=== PATIENT | female | born 1985 | race Hispanic/Latino ===

== ENCOUNTER 2017-07-30 23:39 | Emergency (ER) | payer OTHER | END 2017-07-31 01:13 | disposition home or self-care (01) | LOC: ERS 23:39 | DX: O99.519 Diseases of the respiratory system complicating pregnancy, unspecified trimester (principal); J11.1 Influenza due to unidentified influenza virus with other respiratory manifestations; Z3A.00 Weeks of gestation of pregnancy not specified | CPT/HCPCS: 99283 ==

== ENCOUNTER 2017-12-25 22:52 | Inpatient (IN) | payer OTHER ==
[2017-12-25 23:44] VITALS: BMI 39.0
[2017-12-26] MEDS ORDERED: Acetaminophen 500 MG TAB PO PRN (01:02)
[2017-12-26] MEDS ORDERED: Promethazine HCl 25 MG/ML VIAL IM PRN ×2 (01:02→06:40)
[2017-12-26] MEDS ORDERED: Ondansetron HCl/PF 4 MG/2 ML Vial IVP PRN ×3 (01:02→18:53)
[2017-12-26] MEDS ORDERED: Lactated Ringer's 1,000 ML IV SCH (01:15)
[2017-12-26] MEDS ORDERED: Betamet Acet/Betamet Na Ph 30 MG/5 ML VIAL IM SCH (01:15)
--- NOTE | 2017-12-26 01:19 | PDOC.LDHP ---
Labor and Delivery H&P Chief complaint: other (abdominal cramping) HPI: 32 year old at 35.3 wks with EVELINE of 01/29/2018 based on 11.5 wk u/s that presents for lower abdominal cramping and maroon colored vaginal discharge evidence on wiping. The symptoms started this afternoon while in the shower. She promptly decided to come to [facility] for evaluation, although her plan was to deliver at the [facility] because she desires BTL. She did not think she had time to make it over to [facility]. Current is complicated by GBS bacteriuria s/p treatment with amoxicillin, but otherwise uncomplicated. Patient diagnosed with severe preeclampsia during last and had to be induced prior to 37 weeks. She has been on prophylactic ASA therapy since the beginning of the . Patient denies any headache, vision changes, RUQ pain, swelling, or shortness of breath. ROS: General: Denies fever or chills. Denies changes in appetite. HEENT: Endorses nasal congestion. Denies ear pain, headache, or vision changes. Cards: Denies chest pain and palpitations Resp: Denies shortness of breath or cough GI: Endorses abdominal cramping. Denies diarrhea, N/V TALIB: Denies edema or muscle aches Current gestational age (weeks): 35 (35.3 wks) Grav: 5 Para: 3 OB History Details: 1. Hx of preeclampsia on ASA therapy 2. GBS bacteriuria 3. Rh negative s/p rhogam 4. Desires BTL Current complications: none Abnormal US findings: No Past Medical History: None Current medications: pre- vitamins, other (ASA 81 mg) Previous surgical history: none Allergies/Adverse Reactions: Allergies Allergy/AdvReac Type Severity Reaction Status Date / Time No Known Allergies Allergy Unverified 12/25/17 23:38 Social history: none - Physical Exam Abnormal vital signs: Severe range pressures with SBP in 180's. BP downtrending , but still >140 General: NAD, other (appears anxious) Heart: RRR Lungs: CTAB Abdomen: NTTP Extremeties: no edema FHT: category 1, variability present [place] contractions every: Irregular - Vaginal Exam cm dilated: 1 (By Ye at 01:45) Effacement: 25% Station: -3 - OB Labs Blood type: O RH: negative Antibody Screen: negative HIV: negative RPR: negative HEPSAg: negative GBS: unknown Rubella: immune - Assessment 1. Severe range BP's with history of severe preeclampsia in prior 2. Hx severe preeclampsia on ASA 3. GBS bacteriuria 4. Rh negative s/p rhogam - Plan Plan: admit to L&D -: 1. Admit to L&D 2. Preeclampsia workup: CBC, CMP, Uric acid, Urine protein, Urine creatinine 3. Monitor BP 4. Continuous monitoring 5. Betamethasone 12 mg injection to promote lung maturity 6. UA to rule out infection 7. VP3 pending 8. GBS positive, will need ppx at delivery 9. Rh negative s/p rhogam on 11/03/17
[2017-12-26 01:34] LABS: Bilirubin Negative (Negative); Blood, Urine Trace (Negative); Clarity CLEAR (Clear); Glucose, Urine (Dipstick) Negative (Negative); Leukocyte Negative (Negative); Nitrite Negative (Negative); Protein, Urine (Dipstick) Negative (Neg-Trace); Specific Gravity, Urine 1.022 (1.002-1.036); Urobilinogen 0.2 mg/dL (0.2-1.0)
[2017-12-26 01:36] LABS: Bacteria/HPF None Seen HPF (None Seen); Pathc Cast-AUWi Flag 1.16 (0-2.49); WBC/HPF 0-3 HPF (0-3)
[2017-12-26 01:56] LABS: Creatinine, Urine 123.34 mg/dL (47-110)
[2017-12-26 02:10] LABS: Hyaline Casts/LPF NONE SEEN LPF (0-3 Hyaline); Renal Epithelial 0-3 HPF (0-3); Transitional Epithelial 0-3 HPF (0-3)
[2017-12-26 02:49] LABS: Hemoglobin 12.1 g/dL (12.0-16.0); Mean Corpuscular HGB CONC 33.2 g/dL (32.0-36.0); Mean Corpuscular Hemoglobin 28.3 pg (27.0-31.0); Mean Corpuscular Volume 85.2 fl (81.0-99.0); Mean Platelet Volume 8.1 fL (7.4-10.4); Platelet Count 258 thou/uL (130-400); RBC Distribution Width 13.8 % (11.5-14.5); Red Blood Cell (RBC) Count 4.28 mill/uL (4.20-5.40); White Blood Cell (WBC) Count 11.1 thou/uL (4.8-10.8)
[2017-12-26 03:01] LABS: ALT (SGPT) 16 U/L (8-55); AST (SGOT) 20 U/L (5-34); Albumin 3.2 g/dL (3.5-5.0); Alkaline Phosphatase 142 U/L (40-150); Anion Gap 14 mmol/L (10-20); BUN (Urea Nitrogen) 10 mg/dL (7.0-18.7); Bilirubin, Total 0.2 mg/dL (0.2-1.2); Calc. Creatinine Clearance 193 mL/min (70-130); Calcium 8.8 mg/dL (7.8-10.44); Carbon Dioxide 18 mmol/L (22-29); Chloride 109 mmol/L (98-107); Estimated GFR-MDRD Greater than 90; Globulin 3.2 g/dL (2.4-3.5); Glucose 87 mg/dL (70-105); Protein, Total 6.4 g/dL (6.0-8.3); Sodium 137 mmol/L (136-145); Uric Acid 6.5 mg/dL (2.6-6.0)
[2017-12-26 03:19] LABS: HBSAg Index 0.16 S/CO (0-0.99); Hep B Surf Ag Non-Reactive S/CO (NonReactive)
[2017-12-26] MEDS ORDERED: NS / Oxytocin 40 units/1000ml 1,000 ML IV PRN (05:24)
[2017-12-26] MEDS ORDERED: Lidocaine 1% (PF) 30 ML VIAL SC PRN (05:24)
[2017-12-26] MEDS ORDERED: Penicillin G Potassium 5 MILL.UNITS in Sodium Chloride 0.9% 100 ML IVPB SCH (05:30)
[2017-12-26 05:39] LABS: Syphilis Antibody Nonreactive (Nonreactive); Syphilis Antibody Index 0.05 S/CO (<1.00 Non-Reactive)
[2017-12-26] MEDS ORDERED: Bupivacaine 0.5% 20 ML, fentaNYL Citrate/PF 400 MCG in Sodium Chloride 0.9% 72 ML EPIDURAL SCH (05:45)
--- NOTE | 2017-12-26 05:55 | PDOC.LDPN ---
Labor & Delivery Progress Note - Subjective Subjective: painful contractions - Objective Abnormal vital signs: SBP 150's General: breathing through contractions Uterine fundus: non tender SVE: 05:30 Dilation: 4 Effacement: 90% Station: -2 FHT: category 1, variability present [place] contractions every: q4 minutes - Assessment (1) labor in third trimester Code(s): O60.03 - LABOR WITHOUT DELIVERY, THIRD TRIMESTER Current Visit: Yes Status: Acute Qualifiers: labor delivery status: without delivery Qualified Code(s): O60.03 - labor without delivery, third trimester Comment: 32 year old @ 35.4 wks presents for elevated BP's and abdominal cramping - Cervical change from 20/-3 to /-2 in a 3-4 hour period - Pt given one dose of betamethasone on admission last night - Mg started for neuroprotection - Expectant delivery - Q4H Mg checks - Category 1 strip - GBS prophylaxis (2) GBS (group B streptococcus) UTI complicating Code(s): O23.40 - UNSP INFECTION OF URINARY TRACT IN , UNSP TRIMESTER; B95.1 - STREPTOCOCCUS, GROUP B, CAUSING DISEASES CLASSD ELSWHR Current Visit: Yes Status: Acute Comment: - GBS bacteriuria s/p treatment with antibiotics - ppx antibiotics (3) Gestational HTN Code(s): O13.9 - GESTATIONAL HTN W/O SIGNIFICANT PROTEINURIA, UNSP TRIMESTER Current Visit: Yes Status: Acute Comment: - New onset - No evidence of preeclampsia based on labs and symptoms - Monitor BP - Hx of severe preeclampsia in prior Plan: continue plan of care -: Expectant management, epidural for pain control
[2017-12-26] MEDS: Magnesium Sulfate 20 gm/500 ml 20 GM/500 ML BAG IVPB SCH ×2 (06:19→14:32)
[2017-12-26] MEDS ORDERED: ePHEDrine/0.9% NaCl/PF SYRINGE 50 mg/10 ml SLOW IVP PRN (06:40)
[2017-12-26] MEDS ORDERED: diphenhydrAMINE 50 MG/ML VIAL IVP PRN (06:40)
[2017-12-26] MEDS ORDERED: Eucerin (Mineral Oil/Petrolatum,White) 30 gm Jar TOP PRN (06:40)
[2017-12-26] MEDS ORDERED: Naloxone HCl 0.4 mg/ml Vial IVP PRN ×2 (06:40)
[2017-12-26] MEDS ORDERED: Acetaminophen 325 MG TAB PO PRN ×2 (06:40→18:53)
[2017-12-26] MEDS ORDERED: Lactated Ringer's 500 ML IV PRN (06:40)
[2017-12-26] MEDS ORDERED: Fentanyl 4mcg/Marcaine 0.1% Cassette 100 ML EPIDURAL SCH (06:45)
[2017-12-26] MEDS ORDERED: Communication Order-Pharmacy FS SCH (06:45)
[2017-12-26] MEDS: NS / Oxytocin 40 units/1000ml 1,000 ML IV SCH ×2 (07:50→16:05)
--- NOTE | 2017-12-26 08:11 | PDOC.OPDEL ---
OB Operative/Delivery Note Delivery Dr/Surgeon: Dr. Peggy Alvarez, Dr. Prosper Weston, Attending Dr. Jaziel Young Pre-Delivery Diagnosis: active labor ( labor) Procedure/Post Delivery Dx: spontaneous vaginal delivery Weeks gestation: 35 (35w4d) Anesthesia: epidural - Findings A Sex: male - 1 min: 8 - 5 min: 9 - Additional Findings/Plan Placenta delivered: spontaneous Repaired Obstetrical Laceration: none Estimated blood loss: 200 mL Compilations/Other Findings: This is 32 yo F @ 35.4wks who delivered a viable M infant at 0750 on . Following an uneventful antepartum course, a vigorous M was delivered over an intact perineum in the occipitoanterior position. Anterior Shoulder and then remainder of the body delivered. No nuchal cord. The head was held down and mouth and nares were bulb suctioned. Cord clamped and cut and cord blood collected. Placenta delivered intact with a 3 vessel cord noted. Placenta was found to have a small abruption. Fundal massage was performed and the fundus was firm. The cervix and vagina were inspected and found to be free of lacerations. went to nursery in good condition for routine care. Apgars were 8/9 at 1 & 5 minutes, respectively. Patient tolerated delivery well and went to after routine recovery/care. Post delivery plan: recovery in LICU
[2017-12-26] MEDS ORDERED: Calcium Gluconate 4.6 MEQ in Sodium Chloride 0.9% 100 ML IVPB PRN (08:13)
[2017-12-26] MEDS ORDERED: Bisacodyl 10 MG SUPP PR PRN ×2 (08:24→18:53)
[2017-12-26] MEDS ORDERED: Preparation H Ointment 28 GM TUBE PR PRN (08:24)
[2017-12-26] MEDS ORDERED: Lanolin Ointment 7 GM TUBE TOP PRN ×2 (08:24→18:53)
[2017-12-26] MEDS ORDERED: Milk Of Magnesia 30 ML UDCUP PO PRN ×2 (08:24→18:53)
[2017-12-26] MEDS ORDERED: Adacel (T-DAP) 0.5 ML VIAL IM ONE (08:24)
[2017-12-26] MEDS ORDERED: Penicillin G 2.5 MILL.units 2.5 MILL.UNITS in Premix Bag 1 BAG IVPB SCH (09:00)
[2017-12-26] MEDS ORDERED: Prenatal Vitamin 1 TAB PO SCH (09:00)
[2017-12-26] MEDS ORDERED: Docusate Calcium (SURFAK) 240 MG CAP PO SCH (09:00)
[2017-12-26] MEDS ORDERED: Labetalol HCl 100 MG/20 ML VIAL SLOW IVP PRN (10:57)
--- NOTE | 2017-12-26 11:00 | PDOC.PP ---
Post Progress Note Post Day #: 0 Subjective: 32 y/o @35.4 WGA by 11.5 wk sono PPD#0 Patient doing well. Denies pre-e symptoms including RUQ pain, headache, scotoma , SOB. Having some abdominal cramping. PO intake tolerated: no Flatus: no Ambulation: no Vital Signs (12 hours) Temp Pulse Resp 12/26/17 01:40 98.4 F 72 18 Weight Weight 90.718 kg - Physical Examination General: NAD Cardiovascular: no m/r/g, RRR Respiratory: clear to auscultation bilaterally, non-labored breathing Abdominal: + bowel sounds, lochia, no distention, appropriately TTP Fundus firm & at: 1 cm above the umbilicus Extremities: negative homans (B) Neurological: no gross focal deficits (2+ patellar reflexes) Psychiatric: A&Ox3, normal affect Result Diagrams: 12/26/17 02:15 12/26/17 02:15 Additional Labs: Post Labs Blood Type O NEGATIVE 12/26/17 02:15 Hep Bs Antigen Non-Reactive S/CO (NonReactive) 12/26/17 02:15 (1) labor, delivered, current hospitalization Code(s): O60.10X0 - LABOR W DELIVERY, UNSP TRIMESTER, UNSP Status: Acute Comment: 32 y/o @35.4 WGA by 11.5 wk sono delivered via PPD#0 -Placenta sent for path, concern for abruption on gross assessment -[place] prn pain, will avoid NSAID's due to elevated BP's -Continue PNV -Will use breast pump at this time as in the NICU -Rhogam pending blood type, s/p rhogam at 28 weeks for Rh negative blood type (2) GBS (group B streptococcus) UTI complicating Code(s): O23.40 - UNSP INFECTION OF URINARY TRACT IN , UNSP TRIMESTER; B95.1 - STREPTOCOCCUS, GROUP B, CAUSING DISEASES CLASSD ELSWHR Status: Acute Comment: GBS bacteriuria s/p treatment with antibiotics - s/p one dose of penicillin during labor (3) Gestational HTN Code(s): O13.9 - GESTATIONAL HTN W/O SIGNIFICANT PROTEINURIA, UNSP TRIMESTER Status: Acute QualifierTitle: Trimester: third trimester Qualified Code(s): O13.3 - Gestational [-induced] hypertension without significant proteinuria, third trimester Comment: New onset severe Gestational HTN. Hx of severe preeclampsia in prior No evidence of preeclampsia based on labs and symptoms -Monitor BP -Labetalol prn -Continuing Mag for 8 hours post- due to severe range BP's that pt has continued to have. -Mag checks q4h (patellar reflexes 2+) (4) Rh negative, delivered, current hospitalization Code(s): O26.899 - OTH RELATED CONDITIONS, UNSPECIFIED TRIMESTER; Z67.91 - UNSPECIFIED BLOOD TYPE, RH NEGATIVE Status: Acute Comment: Patient O negative, s/p Rhogam at 28 wks. -Will give Rhogam pending blood type <Peggy Alvarez - Last Filed: 12/26/17 11:17> Vital Signs (12 hours) Temp Pulse Resp BP 12/27/17 05:07 98.3 F 76 18 128/72 12/27/17 05:00 98.3 F 80 18 12/26/17 20:00 98.3 F 80 18 138/78 Weight Weight 200 lb Result Diagrams: 12/27/17 04:56 12/26/17 02:15 Additional Labs: Post Labs Blood Type O NEGATIVE 12/26/17 02:15 Hep Bs Antigen Non-Reactive S/CO (NonReactive) 12/26/17 02:15 <Merlin Garner - Last Filed: 12/27/17 07:04> Attending Addendum - Attending Addendum Date/Time: 12/27/17 0704 I personally evaluated the patient and discussed the management with Dr. Alvarez I agree with the History, Examination, Assessment and Plan documented above with any addition or exceptions noted below. <Merlin Garner - Last Filed: 12/27/17 07:04>
[2017-12-26] MEDS: HYDROcodone/Acetaminophen 5/325 mg Tablet PO PRN ×3 (11:15→23:13)
--- NOTE | 2017-12-26 13:49 | PDOC.PP ---
Post Progress Note Post Day #: 1 Subjective: Pt doing well. Resting comfortably. SBP < 150 with one BP of 171, however resolved on it's own after rechecking, and was during the process of transitioning the patient to a new room. Denies FOFANA, vision changes, RUQ pain, LE pain, SOB or any other concerns. PO intake tolerated: yes Weight Weight 90.718 kg - Physical Examination General: NAD Cardiovascular: no m/r/g Respiratory: clear to auscultation bilaterally, non-labored breathing Abdominal: no distention, appropriately TTP Extremities: negative homans (B) (Trace edema LE bilaterally. Patellar reflexes +1 bilaterally) Neurological: no gross focal deficits Psychiatric: A&Ox3, normal affect Result Diagrams: 12/26/17 02:15 12/26/17 02:15 Additional Labs: Post Labs Blood Type O NEGATIVE 12/26/17 02:15 Hep Bs Antigen Non-Reactive S/CO (NonReactive) 12/26/17 02:15 (1) Severely increased blood pressure and swelling during Code(s): O14.10 - SEVERE PRE-ECLAMPSIA, UNSPECIFIED TRIMESTER Status: Acute Comment: Elevated BP > 180 in labor, however S/p , and BP significantly improved. SBP < 150 PP with exception of 1 BP 171, which resolved on it's own. Currently asymptomatic. Continue to monitor and Magnesium checks. Patient tolerating Mag @ 2. Output > 1L in past hour. Continue to monitor I/O. (2) GBS (group B streptococcus) UTI complicating Code(s): O23.40 - UNSP INFECTION OF URINARY TRACT IN , UNSP TRIMESTER; B95.1 - STREPTOCOCCUS, GROUP B, CAUSING DISEASES CLASSD ELSWHR Status: Acute Comment: GBS bacteriuria s/p treatment with antibiotics - Inadequately treated, s/p one dose of penicillin during labor (3) labor, delivered, current hospitalization Code(s): O60.10X0 - LABOR W DELIVERY, UNSP TRIMESTER, UNSP Status: Acute Comment: 32 y/o @35.4 WGA by 11.5 wk sono delivered via APGARS 8,9 PPD#0 Infant went to NICU due to . -Placenta sent for path, concern for abruption on gross assessment -[place] prn pain, will avoid NSAID's due to elevated BP's -Continue PNV -Will use breast pump at this time as in the NICU -Rhogam pending blood type, s/p rhogam at 28 weeks for Rh negative blood type (4) Rh negative, delivered, current hospitalization Code(s): O26.899 - OTH RELATED CONDITIONS, UNSPECIFIED TRIMESTER; Z67.91 - UNSPECIFIED BLOOD TYPE, RH NEGATIVE Status: Acute Comment: Patient O negative, s/p Rhogam at 28 wks. -Will give Rhogam pending blood type - Assessment/Plan Continue PP management and Magnesium for at least 8 hours PP due to severe blood pressures.
--- NOTE | 2017-12-26 16:02 | PDOC.PP ---
Post Progress Note Post Day #: 0 Subjective: Pt resting comfortably. No concerns. Denies any FOFANA, CP, SOB, vision changes, RUQ pain. PO intake tolerated: yes Flatus: yes Weight Weight 90.718 kg - Physical Examination General: NAD Cardiovascular: no m/r/g, RRR Respiratory: clear to auscultation bilaterally, non-labored breathing Abdominal: + bowel sounds, appropriately TTP (Uterus below umbilicus and firm) Extremities: negative homans (B) Skin: no rash Neurological: no gross focal deficits (+2 reflexes Patella bilaterally) Result Diagrams: 12/26/17 02:15 12/26/17 02:15 Additional Labs: Post Labs Blood Type O NEGATIVE 12/26/17 02:15 Hep Bs Antigen Non-Reactive S/CO (NonReactive) 12/26/17 02:15 (1) Severely increased blood pressure and swelling during Code(s): O14.10 - SEVERE PRE-ECLAMPSIA, UNSPECIFIED TRIMESTER Status: Acute Comment: Elevated BP > 180 in labor, however S/p , and BP significantly improved. SBP < 160 PP with exception of 1 BP 171, which resolved on it's own. Currently asymptomatic. Good diuresis. Input 2215. Output > 1950 since 10:00am. Will d/c Magnesium as now 8hr s/p Delivery. (2) GBS (group B streptococcus) UTI complicating Code(s): O23.40 - UNSP INFECTION OF URINARY TRACT IN , UNSP TRIMESTER; B95.1 - STREPTOCOCCUS, GROUP B, CAUSING DISEASES CLASSD ELSWHR Status: Acute Comment: GBS bacteriuria s/p treatment with antibiotics - Inadequately treated, s/p one dose of penicillin during labor (3) labor, delivered, current hospitalization Code(s): O60.10X0 - LABOR W DELIVERY, UNSP TRIMESTER, UNSP Status: Acute Comment: 32 y/o @35.4 WGA by 11.5 wk sono delivered via APGARS 8,9 PPD#0 went to NICU due to . Was s/p betamethasone x1 dose. -Placenta sent for path, concern for abruption on gross assessment -[place] prn pain, will avoid NSAID's due to elevated BP's -Continue PNV -Will use breast pump at this time as in the NICU -Rhogam pending blood type, s/p rhogam at 28 weeks for Rh negative blood type (4) Rh negative, delivered, current hospitalization Code(s): O26.899 - OTH RELATED CONDITIONS, UNSPECIFIED TRIMESTER; Z67.91 - UNSPECIFIED BLOOD TYPE, RH NEGATIVE Status: Acute Comment: Patient O negative, s/p Rhogam at 28 wks. -Will give Rhogam pending blood type
[2017-12-26] MEDS ORDERED: Ferrous Sulfate 325 MG TAB PO SCH (17:00)
[2017-12-26] MEDS ORDERED: Benzocaine/Menthol 20-0.5% 60 ML CAN TOP PRN (18:53)
[2017-12-26] MEDS ORDERED: diphenhydrAMINE 25 MG CAP PO PRN (18:53)
[2017-12-26] MEDS ORDERED: NS / Oxytocin 40 units/1000ml 1,000 ML IV SCH (18:53)
[2017-12-26] MEDS: Docusate Calcium (SURFAK) 240 MG CAP PO SCH (20:04)
[2017-12-27 05:16] LABS: Hemoglobin 12.2 g/dL (12.0-16.0); Mean Corpuscular HGB CONC 32.6 g/dL (32.0-36.0); Mean Corpuscular Hemoglobin 27.7 pg (27.0-31.0); Mean Corpuscular Volume 85.1 fl (81.0-99.0); Mean Platelet Volume 8.1 fL (7.4-10.4); Platelet Count 273 thou/uL (130-400); RBC Distribution Width 14.1 % (11.5-14.5); Red Blood Cell (RBC) Count 4.38 mill/uL (4.20-5.40); White Blood Cell (WBC) Count 16.6 thou/uL (4.8-10.8)
--- NOTE | 2017-12-27 06:32 | PDOC.PP ---
Post Progress Note Post Day #: 2 Subjective: Seeing baby in NICU at time of exam. No acute events overnight. Answered all questions. PO intake tolerated: yes Flatus: no Ambulation: yes Vital Signs (12 hours) Temp Pulse Resp BP 12/27/17 05:07 98.3 F 76 18 128/72 12/27/17 05:00 98.3 F 80 18 12/26/17 20:00 98.3 F 80 18 138/78 12/26/17 18:45 98.5 F 81 18 136/63 Weight Weight 90.718 kg - Physical Examination General: NAD Cardiovascular: no m/r/g, RRR Respiratory: clear to auscultation bilaterally, non-labored breathing Abdominal: + bowel sounds, lochia, no distention, appropriately TTP Fundus firm & at: umbilicus Extremities: negative homans (B) Neurological: no gross focal deficits Psychiatric: A&Ox3, normal affect Result Diagrams: 12/27/17 04:56 12/26/17 02:15 Additional Labs: Post Labs Blood Type O NEGATIVE 12/26/17 02:15 Hep Bs Antigen Non-Reactive S/CO (NonReactive) 12/26/17 02:15 (1) Gestational HTN Code(s): O13.9 - GESTATIONAL HTN W/O SIGNIFICANT PROTEINURIA, UNSP TRIMESTER Status: Acute QualifierTitle: Trimester: third trimester Qualified Code(s): O13.3 - Gestational [-induced] hypertension without significant proteinuria, third trimester Comment: BP trended up overnight but all less than 140/90 - PRNs available - monitor overnight. (2) GBS (group B streptococcus) UTI complicating Code(s): O23.40 - UNSP INFECTION OF URINARY TRACT IN , UNSP TRIMESTER; B95.1 - STREPTOCOCCUS, GROUP B, CAUSING DISEASES CLASSD ELSWHR Status: Acute Comment: GBS bacteriuria s/p treatment with antibiotics - Inadequately treated, s/p one dose of penicillin during labor (3) labor in third trimester Code(s): O60.03 - LABOR WITHOUT DELIVERY, THIRD TRIMESTER Status: Acute QualifierTitle: labor delivery status: without delivery Qualified Code(s): O60.03 - labor without delivery, third trimester Comment: 32 year old @ 35.4 wks presents for elevated BP's and abdominal cramping - delivered. (4) Rh negative, delivered, current hospitalization Code(s): O26.899 - OTH RELATED CONDITIONS, UNSPECIFIED TRIMESTER; Z67.91 - UNSPECIFIED BLOOD TYPE, RH NEGATIVE Status: Acute Comment: given 1 dose of rhogam yesterday <Prosper Weston - Last Filed: 12/27/17 06:51> Vital Signs (12 hours) Temp Pulse Resp BP 12/27/17 05:07 98.3 F 76 18 128/72 12/27/17 05:00 98.3 F 80 18 12/26/17 20:00 98.3 F 80 18 138/78 Weight Weight 200 lb Result Diagrams: 12/27/17 04:56 12/26/17 02:15 Additional Labs: Post Labs Blood Type O NEGATIVE 12/26/17 02:15 Hep Bs Antigen Non-Reactive S/CO (NonReactive) 12/26/17 02:15 <Merlin Garner - Last Filed: 12/27/17 07:09> Attending Addendum - Attending Addendum Date/Time: 12/27/17 0709 I personally evaluated the patient and discussed the management with Dr. Weston I agree with the History, Examination, Assessment and Plan documented above with any addition or exceptions noted below. <Merlin Garner - Last Filed: 12/27/17 07:09>
[2017-12-27] MEDS: Prenatal Vitamin 1 TAB PO SCH (09:08)
[2017-12-27] MEDS: Docusate Calcium (SURFAK) 240 MG CAP PO SCH (09:09)
[2017-12-27] MEDS: HYDROcodone/Acetaminophen 5/325 mg Tablet PO PRN (09:09)
[2017-12-27] MEDS: Ferrous Sulfate 325 MG TAB PO SCH ×2 (09:12→17:22)
--- NOTE | 2017-12-28 06:12 | PDOC.PP ---
Post Progress Note Post Day #: 2 Subjective: No concerned. feeding baby in NICU. discussed discharge from hospital. She was in agreement. PO intake tolerated: yes Flatus: yes Ambulation: yes Vital Signs (12 hours) Temp Pulse Resp 12/28/17 00:00 98.2 F 65 20 12/27/17 20:00 98.2 F 73 20 Weight Weight 90.718 kg - Physical Examination General: NAD Cardiovascular: no m/r/g, RRR Respiratory: clear to auscultation bilaterally, non-labored breathing Abdominal: + bowel sounds, lochia, no distention, appropriately TTP Extremities: negative homans (B) Neurological: no gross focal deficits Psychiatric: A&Ox3, normal affect Result Diagrams: 12/27/17 04:56 12/26/17 02:15 Additional Labs: Post Labs Blood Type O NEGATIVE 12/26/17 02:15 Hep Bs Antigen Non-Reactive S/CO (NonReactive) 12/26/17 02:15 (1) Gestational HTN Code(s): O13.9 - GESTATIONAL HTN W/O SIGNIFICANT PROTEINURIA, UNSP TRIMESTER Status: Acute Qualifiers: Trimester: third trimester Qualified Code(s): O13.3 - Gestational [ -induced] hypertension without significant proteinuria, third trimester Comment: BP stable only one BP >140 in past 24 hours - plan for d/c today. (2) GBS (group B streptococcus) UTI complicating Code(s): O23.40 - UNSP INFECTION OF URINARY TRACT IN , UNSP TRIMESTER; B95.1 - STREPTOCOCCUS, GROUP B, CAUSING DISEASES CLASSD ELSWHR Status: Acute Comment: GBS bacteriuria s/p treatment with antibiotics - Inadequately treated, s/p one dose of penicillin during labor (3) labor in third trimester Code(s): O60.03 - LABOR WITHOUT DELIVERY, THIRD TRIMESTER Status: Acute Qualifiers: labor delivery status: without delivery Qualified Code(s): O60.03 - labor without delivery, third trimester Comment: 32 year old @ 35.4 wks presents for elevated BP's and abdominal cramping - delivered. (4) Rh negative, delivered, current hospitalization Code(s): O26.899 - OTH RELATED CONDITIONS, UNSPECIFIED TRIMESTER; Z67.91 - UNSPECIFIED BLOOD TYPE, RH NEGATIVE Status: Acute Comment: given 1 dose of rhogam PP day 0
[2017-12-28] MEDS: Ferrous Sulfate 325 MG TAB PO SCH (08:22)
[2017-12-28] MEDS: Docusate Calcium (SURFAK) 240 MG CAP PO SCH (08:23)
[2017-12-28] MEDS: Prenatal Vitamin 1 TAB PO SCH (08:23)
[2017-12-28] MEDS: HYDROcodone/Acetaminophen 5/325 mg Tablet PO PRN (08:23)
[2017-12-28 08:46] VITALS: BP 149/84; TEMP 98.8
[2017-12-29] MEDS ORDERED: Bupivacaine HCl 0.5%/Epinephrine 1:200,000/PF 30 ml Vial ONE (11:11)
== END 2017-12-28 15:07 | disposition home or self-care (01) | DRG 775 ==
LOC: L&D/OP 22:52 → L&D 12-26 01:57 → 3SW 12-26 18:52
PROVIDERS: ADMIT Obstetrics & Gynecology; ATTEND Obstetrics & Gynecology
PROC: 10E0XZZ Delivery of Products of Conception, External Approach (ICD-10-PCS; principal; 2017-12-26)
DX: O42.913 Preterm premature rupture of membranes, unspecified as to length of time between rupture and onset of labor, third trimester (principal); Z37.0 Single live birth; Z3A.35 35 weeks gestation of pregnancy; O13.4 Gestational [pregnancy-induced] hypertension without significant proteinuria, complicating childbirth; O99.824 Streptococcus B carrier state complicating childbirth; O75.89 Other specified complications of labor and delivery; O14.14 Severe pre-eclampsia complicating childbirth
CPT/HCPCS: 36415; 51702; 59025; 80053; 81001; 81003; 82570; 84156; 84550; 85027; 85461; 86780; 86850; 86900; 86901; 87340; 87480; 87510; 87660; 88307; 88342; 90384; 96372; 99285; J0702; J2001; J2540; J3010; J3475; J3490; J7050